=== PATIENT | male | born 1970 | race Caucasian/White ===

== ENCOUNTER 2018-05-24 14:57 | Emergency (ER) | payer MEDICAID, OTHER ==
[~2018-05-24] VITALS: Ht 172.7 cm; Wt 68.0 kg
--- NOTE | 2018-05-24 15:22 | ED Cardiac General ---
History of Present Illness General Stated Complaint: FAST HEART RATE Source: patient Exam Limitations: no limitations History of Present Illness Date Seen by Provider: May 24, 2018 Time Seen by Provider: 15:04 Initial Comments 47-year-old male presents with history of palpitations beginning at 0200 last night. He states he just come in from fishing when he noticed the palpitations and general malaise. He is feeling better now but states he notes continued increased heart rate. Denies any drug usage last night but states he last smoked methamphetamines about 3 days ago. Denies alcohol use, stimulant use or new medications. He states he has a seizure disorders been on medication chronically without change. He is unaware of what that medication is. He takes medication for reflux as well. He admits to daily marijuana use. Allergies and Home Medications Allergies Coded Allergies: No Known Drug Allergies (Unverified , 05/24/18) Patient Home Medication List Home Medication List Reviewed: Yes Review of Systems Review of Systems Constitutional: see HPI EENTM: No Symptoms Reported Respiratory: Cough, Other (sputum production) Cardiovascular: See HPI; Denies Chest Pain Gastrointestinal: No Symptoms Reported Genitourinary: No Symptoms Reported Musculoskeletal: no symptoms reported Skin: no symptoms reported Psychiatric/Neurological: No Symptoms Reported Endocrine: No Symptoms Reported Hematologic/Lymphatic: No Symptoms Reported Past Kdzfhwb-Niamyd-Uxpvvx Hx Past Med/Social Hx: Reviewed Nursing Past Med/Soc Hx Patient Social History Recent Foreign Travel: No (N) Contact w/Someone Who Travel: No (N) Physical Exam Vital Signs Vital Signs - First Documented 05/24/18 15:23 Temp 96.7 Pulse 113 Resp 18 B/P (MAP) 144/84 (104) Pulse Ox 97 O2 Delivery Room Air Capillary Refill : Height, Weight, BMI Height: '" Weight: lbs. oz. kg; BMI Method: General Appearance: No Apparent Distress, WD/WN HEENT: PERRL/EOMI, TMs Normal, Normal ENT Inspection, Pharynx Normal Neck: Full Range of Motion, Normal Inspection, Non Tender Respiratory: Chest Non Tender, Normal Breath Sounds, No Accessory Muscle Use, No Respiratory Distress, Rhonci Cardiovascular: Regular Rate, Rhythm, No Edema, No Gallop, No JVD, No Murmur, Normal Peripheral Pulses, Tachycardia Gastrointestinal: Normal Bowel Sounds, No Organomegaly, No Pulsatile Mass, Non Tender Extremity: Normal Capillary Refill, Normal Inspection, Normal Range of Motion, Non Tender, No Calf Tenderness, No Pedal Edema Neurologic/Psychiatric: Alert, Oriented x3, No Motor/Sensory Deficits, Normal 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, 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 as Tested Skin: Normal Color, Warm/Dry Lymphatic: No Adenopathy Progress/Results/Core Measures Results/Orders Lab Results Laboratory Tests Test 05/24/18 15:15 05/24/18 15:30 Range/Units White Blood Count 7.8 4.3-11.0 10^3/uL Red Blood Count 4.41 4.35-5.85 10^6/uL Hemoglobin 13.3 13.3-17.7 G/DL Hematocrit 42 40-54 % Mean Corpuscular Volume 94 80-99 FL Mean Corpuscular Hemoglobin 30 25-34 PG Mean Corpuscular Hemoglobin Concent 32 32-36 G/DL Red Cell Distribution Width 13.3 10.0-14.5 % Platelet Count 338 130-400 10^3/uL Mean Platelet Volume 9.1 7.4-10.4 FL Neutrophils (%) (Auto) 54 42-75 % Lymphocytes (%) (Auto) 30 12-44 % Monocytes (%) (Auto) 10 0-12 % Eosinophils (%) (Auto) 4 0-10 % Basophils (%) (Auto) 1 0-10 % Neutrophils # (Auto) 4.2 1.8-7.8 X 10^3 Lymphocytes # (Auto) 2.4 1.0-4.0 X 10^3 Monocytes # (Auto) 0.8 0.0-1.0 X 10^3 Eosinophils # (Auto) 0.3 0.0-0.3 10^3/uL Basophils # (Auto) 0.1 0.0-0.1 10^3/uL Prothrombin Time 12.7 12.2-14.7 SEC INR Comment 1.0 0.8-1.4 Activated Partial Thromboplast Time 27 24-35 SEC Sodium Level 142 135-145 MMOL/L Potassium Level 3.7 3.6-5.0 MMOL/L Chloride Level 104 98-107 MMOL/L Carbon Dioxide Level 16 L 21-32 MMOL/L Anion Gap 22 H 5-14 MMOL/L Blood Urea Nitrogen 18 7-18 MG/DL Creatinine 0.98 0.60-1.30 MG/DL Estimat Glomerular Filtration Rate > 60 BUN/Creatinine Ratio 18 Glucose Level 148 H 70-105 MG/DL Calcium Level 8.9 8.5-10.1 MG/DL Corrected Calcium 8.5-10.1 MG/DL Magnesium Level 1.9 1.8-2.4 MG/DL Total Bilirubin 0.2 0.1-1.0 MG/DL Aspartate Amino Transf (AST/SGOT) 20 5-34 U/L Alanine Aminotransferase (ALT/SGPT) 18 0-55 U/L Alkaline Phosphatase 76 40-136 U/L Troponin T 8 <=15 NG/L Total Protein 7.2 6.4-8.2 GM/DL Albumin 4.6 H 3.2-4.5 GM/DL Lipase 28 8-78 U/L Urine Color YELLOW Urine Clarity CLEAR Urine pH 5.5 5-9 Urine Specific [place] >=1.030 1.016-1.022 Urine Protein NEGATIVE NEGATIVE Urine Glucose (UA) NEGATIVE NEGATIVE Urine Ketones NEGATIVE NEGATIVE Urine Nitrite NEGATIVE NEGATIVE Urine Bilirubin NEGATIVE NEGATIVE Urine Urobilinogen 0.2 NORMAL MG/DL Urine Leukocyte Esterase NEGATIVE NEGATIVE Urine RBC (Auto) NEGATIVE NEGATIVE Urine RBC RARE /HPF Urine WBC RARE /HPF Urine Squamous Epithelial Cells RARE /HPF Urine Crystals NONE /LPF Urine Bacteria TRACE /HPF Urine Casts NONE /LPF Urine Mucus NEGATIVE /LPF Urine Culture Indicated NO Urine Opiates Screen NEGATIVE NEGATIVE Urine Oxycodone Screen NEGATIVE NEGATIVE Urine Methadone Screen NEGATIVE NEGATIVE Urine Propoxyphene Screen NEGATIVE NEGATIVE Urine Barbiturates Screen POSITIVE H NEGATIVE Ur Tricyclic Antidepressants Screen NEGATIVE NEGATIVE Urine Phencyclidine Screen NEGATIVE NEGATIVE Urine Amphetamines Screen POSITIVE H NEGATIVE Urine Methamphetamines Screen POSITIVE H NEGATIVE Urine Benzodiazepines Screen NEGATIVE NEGATIVE Urine Cocaine Screen NEGATIVE NEGATIVE Urine Cannabinoids Screen POSITIVE H NEGATIVE My Orders Orders - GERA HDZ MD Ekg Tracing (05/24/18 15:11) Saline Lock/Iv-Start (05/24/18 15:11) Monitor-Rhythm Ecg Trace Only (05/24/18 15:11) Cbc With Automated Diff (05/24/18 15:11) Magnesium (05/24/18 15:11) Chest 1 View Ap/Pa Only (05/24/18 15:11) Comprehensive Metabolic Panel (05/24/18 15:11) Protime With Inr (05/24/18 15:11) Partial Thromboplastin Time (05/24/18 15:11) O2 (05/24/18 15:11) Lipid Panel (05/25/18 06:00) Saline Lock/Iv-Start (05/24/18 15:11) Lipase (05/24/18 15:11) Drug Screen Stat (Urine) (05/24/18 15:16) Ua Culture If Indicated (05/24/18 15:16) Dilantin (Phenytoin) (05/24/18 15:22) Troponin T (05/24/18 15:11) Myoglobin Serum (05/24/18 15:15) Vital Signs/I&O 05/24/18 15:23 Temp 96.7 Pulse 113 Resp 18 B/P (MAP) 144/84 (104) Pulse Ox 97 O2 Delivery Room Air Progress Progress Note : Time: 16:20 Progress Note I had an extended discussion with patient concerning the lab testing. I explained that, while there is no evidence of cardiac or other abnormality, that it does not mean that is not present. I stressed the importance of follow- up with his primary care physician for possible further cardiac testing at their discretion. He voiced understanding, acceptance in agreement with this plan. We discuss his use of illicit drugs and how this may be contributing to his current symptoms. I discouraged their future use. Initial ECG Impression Date: May 24, 2018 Initial ECG Impression Time: 15:17 Initial ECG Rhythm: S.Tach Initial ECG Intervals: Normal Initial ECG Impression: Normal Initial ECG Comparisson: No Previous ECG Available Diagnostic Imaging Diagonstic Imaging: Xray Plain Films/CT/US/NM/MRI: chest Comments NAME: REBECCA COPPOLA [facility] REC#: [id number] PT STATUS: REG ER : 1970 PHYSICIAN: GERA HDZ MD ADMIT DATE: 05/24/18/ER FS Draft Date of Exam:05/24/18 CHEST 1 VIEW AP/PA ONLY EXAM: CHEST 1 VIEW AP/PA ONLY. INDICATION: Tachycardia. COMPARISON: None. FINDINGS: Normal heart size and central pulmonary vascularity. No focal pulmonary opacity, pleural effusion, or pneumothorax. No acute osseous findings. IMPRESSION: No acute cardiopulmonary findings. Dictated on workstation # [id number] Dict: 05/24/18 1539 Trans: 05/24/18 1541 [id number] Interpreted by: OC PATTERSON MD Electronically signed by: Departure Impression Primary Impression: Palpitation Additional Impression: Illicit drug use Disposition: HOME, SELF-CARE Condition: Improved Departure-Patient Inst. Decision time for Depature: 16:21 Referrals: MARIS LOYA MD (PCP/Family) Primary Care Physician 2-3 days, sooner as needed Patient Instructions: Chest Pain (DC), Palpitations (DC) Add. Discharge Instructions: See your PCP to follow up this evaluation and to obtain further testing at their discretion. GERA HZD MD May 24, 2018 15:22
[2018-05-24 15:32] LABS: BASOPHILS # (AUTO) 0.1 10^3/uL (0.0-0.1); BASOPHILS % (AUTO) 1 % (0-10); EOSINOPHILS # (AUTO) 0.3 10^3/uL (0.0-0.3); EOSINOPHILS % (AUTO) 4 % (0-10); HEMATOCRIT 42 % (40-54); HEMOGLOBIN 13.3 G/DL (13.3-17.7); LYMPHOCYTES # (AUTO) 2.4 X 10^3 (1.0-4.0); LYMPHOCYTES % (AUTO) 30 % (12-44); MEAN CORPUSCULAR HEMOGLOBIN 30 PG (25-34); MEAN CORPUSCULAR HGB CONC 32 G/DL (32-36); MEAN CORPUSCULAR VOLUME 94 FL (80-99); MEAN PLATELET VOLUME 9.1 FL (7.4-10.4); MONOCYTES # (AUTO) 0.8 X 10^3 (0.0-1.0); MONOCYTES % (AUTO) 10 % (0-12); NEUTROPHILS # (AUTO) 4.2 X 10^3 (1.8-7.8); NEUTROPHILS % (AUTO) 54 % (42-75); PLATELET COUNT 338 10^3/uL (130-400); RED CELL DISTRIBUTION WIDTH 13.3 % (10.0-14.5); WHITE BLOOD COUNT 7.8 10^3/uL (4.3-11.0)
--- NOTE | 2018-05-24 15:40 | NUR ---
Pt stated he felt like he was dying last night. He was fishing when heart began to race. Pt stated that he is currently not in any pain.
--- NOTE | 2018-05-24 15:41 | Diagnostic Imaging Report ---
EXAM: CHEST 1 VIEW AP/PA ONLY. INDICATION: Tachycardia. COMPARISON: None. FINDINGS: Normal heart size and central pulmonary vascularity. No focal pulmonary opacity, pleural effusion, or pneumothorax. No acute osseous findings. IMPRESSION: No acute cardiopulmonary findings. Dictated by: Dictated on workstation # [id number]
[2018-05-24 15:52] LABS: BACTERIA,URINE TRACE /HPF; BILIRUBIN,URINE NEGATIVE (NEGATIVE); CLARITY,URINE CLEAR; COLOR,URINE YELLOW; GLUCOSE, URINE (UA) NEGATIVE (NEGATIVE); KETONES,URINE NEGATIVE (NEGATIVE); LEUKOCYTE ESTERASE ,URINE NEGATIVE (NEGATIVE); NITRITE,URINE NEGATIVE (NEGATIVE); PH,URINE 5.5 (5-9); PROTEIN,URINE NEGATIVE (NEGATIVE); RBC,URINE RARE /HPF; SQUAMOUS EPITHELIAL CELL,UR RARE /HPF; UROBILINOGEN,URINE 0.2 MG/DL (NORMAL); WBC,URINE RARE /HPF
[2018-05-24 15:57] LABS: AMPHETAMINE SCREEN, URINE POSITIVE (NEGATIVE); BARBITURATE SCREEN URINE POSITIVE (NEGATIVE); BENZODIAZEPINES SCREEN URINE NEGATIVE (NEGATIVE); CANNABINOID SCREEN, URINE POSITIVE (NEGATIVE); COCAINE SCREEN URINE NEGATIVE (NEGATIVE); METHADONE STAT NEGATIVE (NEGATIVE); METHAMPHETAMINE SCREEN URINE S POSITIVE (NEGATIVE); OPIATE SCREEN URINE NEGATIVE (NEGATIVE); OXYCODONE STAT NEGATIVE (NEGATIVE); PROPOXYPHENE STAT NEGATIVE (NEGATIVE); TRICYCLIC ANTIDEPRESSANTS SCRE NEGATIVE (NEGATIVE)
[2018-05-24 16:00] LABS: ALANINE AMINOTRANSFERASE 18 U/L (0-55); ALBUMIN 4.6 GM/DL (3.2-4.5); ALKALINE PHOSPHATASE 76 U/L (40-136); BILIRUBIN,TOTAL 0.2 MG/DL (0.1-1.0); BUN/CREATININE RATIO 18; CALCIUM 8.9 MG/DL (8.5-10.1); CARBON DIOXIDE 16 MMOL/L (21-32); CHLORIDE 104 MMOL/L (98-107); CREATININE SERUM 0.98 MG/DL (0.60-1.30); GFR ESTIMATED > 60; GLUCOSE 148 MG/DL (70-105); LIPASE 28 U/L (8-78); MAGNESIUM 1.9 MG/DL (1.8-2.4); POTASSIUM 3.7 MMOL/L (3.6-5.0); SODIUM 142 MMOL/L (135-145); TOTAL PROTEIN 7.2 GM/DL (6.4-8.2)
[2018-05-24 16:01] LABS: PROTHROMBIN TIME PATIENT 12.7 SEC (12.2-14.7)
[2018-05-24 16:31] VITALS: BP 114/71
== END 2018-05-24 16:31 | disposition home or self-care (01) ==
LOC: ER FS 14:59
DX: R00.2 Palpitations (principal); F12.10 Cannabis abuse, uncomplicated
CPT/HCPCS: 36415; 71045; 80053; 80185; 80306; 81000; 83690; 83735; 83874; 84484; 85025; 85610; 85730; 93041

== ENCOUNTER → 2018-06-14 | Emergency (ER) | payer MEDICAID ==
[~2018-06-14] VITALS: Ht 175.3 cm; Wt 70.3 kg
[~2018-06-14] MED LIST: LIDOCAINE 1% INJ 20 ML 20 ML VIAL INJ ONE; TETANUS,DIPTH,PERTUSS P/F (BOOSTRIX) 0.5 ML VIAL IM ONE; cefTRIAXone FOR IV USE 2,000 MG in WATER (STERILE) FOR INJECTION 20 ML IV ONE; fentaNYL INJECTION 100 MCG/2 ML AMP IVP ONE
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
--- NOTE | 2018-06-14 13:23 | Diagnostic Imaging Report ---
Left tibia-fibula at 1254 hours. INDICATION: Puncture wound from dog bite. AP and lateral views were obtained. There are no prior studies available for comparison. FINDINGS: There is no fracture, dislocation or acute bony abnormality evident. There is deformity of the proximal tibia due to prior trauma. There is also intramedullary nadira extending the length of the tibia. The orthopedic hardware appears to be in good position. However, it should be noted that the orthopedic fixation screw in the proximal tibia is broken. There is also mild deformity of the fibular neck from prior trauma. The soft tissues are unremarkable. There is no radiopaque foreign body identified. IMPRESSION: 1. There is no evidence for an acute bony abnormality or for radiopaque foreign body. 2. The orthopedic hardware within the tibia appears to be in good position although the orthopedic fixation screw is broken. Dictated by: Dictated on workstation # [id number]
[2018-06-14 14:11] VITALS: BP 114/72
== END | disposition home or self-care (01) ==
LOC: EDUNIT# 11:36 → ER FS 11:44
DX: S81.031A Puncture wound without foreign body, right knee, initial encounter (principal); S81.832A Puncture wound without foreign body, left lower leg, initial encounter; G40.909 Epilepsy, unspecified, not intractable, without status epilepticus; F17.210 Nicotine dependence, cigarettes, uncomplicated; Z23 Encounter for immunization; Z88.6 Allergy status to analgesic agent; W54.0XXA Bitten by dog, initial encounter
CPT/HCPCS: 12032; 73590; 90715

== ENCOUNTER 2018-08-02 22:07 | Emergency (ER) | payer MEDICAID, OTHER ==
[~2018-08-02] VITALS: Ht 172.7 cm; Wt 63.5 kg
--- NOTE | 2018-08-02 22:29 | ED Chest Pain ---
General Chief Complaint: Chest Wall Stated Complaint: CHEST PAIN; SEIZURE Source: patient, police Exam Limitations: no limitations History of Present Illness Date Seen by Provider: August 02, 2018 Time Seen by Provider: 22:11 Initial Comments The patient presents to ER from [facility] with his arpita and chief complaint that today he woke up feeling some pain in the center of his chest had some chills but no fever cough. He has some malaise and general fatigue. Is also noting that today he's been having some tingling in his third and fourth fingertips especially on his right hand but also in his left hand. He has no history of coronary disease, hypertension, diabetes or hyperlipidemia and does not follow with a doctor routinely. He does smoke about a pack cigarettes per day has a history of smoked methamphetamine use and denies history of stroke. No significant premature family coronary history either. He is not having any nausea or sweats. He denies a history of lung disease, COPD, asthma etc. Not having any swelling in his hands or feet. Arpita says he does not wear handcuffs at all while he is in halfway. His chest pain is worse when he takes a deep breath in. He was given Tylenol and Motrin for his pain alternatively which he said did not help much. He then was apparently holding his breath and had some witnessed seizure-like activity without noted postictal state per arpita. She denies any recent fighting or car wrecks. Allergies and Home Medications Allergies Coded Allergies: aspirin (Verified Allergy, Unknown, 06/14/18) Patient Home Medication List Home Medication List Reviewed: Yes Review of Systems Review of Systems Constitutional: chills; No fever; malaise EENTM: No Blurred Vision, No Double Vision Respiratory: Denies Cough, Denies Shortness of Air Cardiovascular: See HPI, Chest Pain; Denies Edema, Denies Syncope Gastrointestinal: Denies Abdomen Distended, Denies Abdominal Pain, Denies Nausea Genitourinary: Denies Burning, Denies Discharge, Denies Drainage Musculoskeletal: No back pain, No joint pain Skin: No pruritus, No rash Psychiatric/Neurological: Denies Headache, Denies Numbness, Denies Paresthesia Past Hhfhnay-Lkgchw-Ijjmkb Hx Patient Social History Alcohol Use: Regular Use Alcohol Beverage of Choice: Beer Recreational Drug Use: Yes Drug of Choice: methamphetamines, marijuana Smoking Status: Current Everyday Smoker Type Used: Cigarettes (one pack per day) 2nd Hand Smoke Exposure: No Recent Hopitalizations: No Seasonal Allergies Seasonal Allergies: No Past Medical History Surgeries: Yes (Pins in leg bilaterally ) Respiratory: No Cardiac: No Neurological: Yes Seizure Disorder Genitourinary: No Gastrointestinal: Yes (heartburn) Musculoskeletal: No Endocrine: No HEENT: No Cancer: No Psychosocial: No Integumentary: No Blood Disorders: No Physical Exam Vital Signs Vital Signs - First Documented 08/02/18 22:13 Temp 97.9 Pulse 69 Resp 16 B/P (MAP) 137/84 (101) Pulse Ox 98 O2 Delivery Room Air Capillary Refill : Height, Weight, BMI Height: 5'9.00" Weight: 155lbs. 0oz. 70.332544hy; BMI Method:Stated General Appearance: No Apparent Distress, WD/WN HEENT: Pharynx Normal, Moist Mucous Membranes Neck: Full Range of Motion, Normal Inspection Respiratory: No Chest Non Tender; Lungs Clear, Normal Breath Sounds, No Accessory Muscle Use, No Respiratory Distress, Other (direct palpation to the sternum re-creates his chest wall pain.) Cardiovascular: Regular Rate, Rhythm, No Edema, Normal Peripheral Pulses Gastrointestinal: Normal Bowel Sounds, Non Tender, Soft Extremity: Normal Capillary Refill, Normal Inspection, No Pedal Edema Neurologic/Psychiatric: Alert, Oriented x3, Normal Mood/Affect, Sensory Deficit (bilateral upper extremities right worse than left third fourth fifth digits.), Other (positive towels tap over the ulnar nerve at the level of the elbow and tenderness in the neck and shoulder.) Skin: Normal Color, Warm/Dry Progress/Results/Core Measures Results/Orders Lab Results Laboratory Tests Test 08/02/18 22:34 08/02/18 22:50 Range/Units White Blood Count 9.2 4.3-11.0 10^3/uL Red Blood Count 4.54 4.35-5.85 10^6/uL Hemoglobin 13.7 13.3-17.7 G/DL Hematocrit 43 40-54 % Mean Corpuscular Volume 94 80-99 FL Mean Corpuscular Hemoglobin 30 25-34 PG Mean Corpuscular Hemoglobin Concent 32 32-36 G/DL Red Cell Distribution Width 13.2 10.0-14.5 % Platelet Count 306 130-400 10^3/uL Mean Platelet Volume 9.4 7.4-10.4 FL Neutrophils (%) (Auto) 49 42-75 % Lymphocytes (%) (Auto) 33 12-44 % Monocytes (%) (Auto) 11 0-12 % Eosinophils (%) (Auto) 6 0-10 % Basophils (%) (Auto) 1 0-10 % Neutrophils # (Auto) 4.5 1.8-7.8 X 10^3 Lymphocytes # (Auto) 3.1 1.0-4.0 X 10^3 Monocytes # (Auto) 1.0 0.0-1.0 X 10^3 Eosinophils # (Auto) 0.6 H 0.0-0.3 10^3/uL Basophils # (Auto) 0.1 0.0-0.1 10^3/uL Sodium Level 143 135-145 MMOL/L Potassium Level 4.2 3.6-5.0 MMOL/L Chloride Level 102 98-107 MMOL/L Carbon Dioxide Level 26 21-32 MMOL/L Anion Gap 15 H 5-14 MMOL/L Blood Urea Nitrogen 18 7-18 MG/DL Creatinine 0.87 0.60-1.30 MG/DL Estimat Glomerular Filtration Rate > 60 BUN/Creatinine Ratio 21 Glucose Level 114 H 70-105 MG/DL Calcium Level 9.3 8.5-10.1 MG/DL Corrected Calcium 9.2 8.5-10.1 MG/DL Magnesium Level 2.1 1.8-2.4 MG/DL Total Bilirubin 0.2 0.1-1.0 MG/DL Aspartate Amino Transf (AST/SGOT) 17 5-34 U/L Alanine Aminotransferase (ALT/SGPT) 15 0-55 U/L Alkaline Phosphatase 65 40-136 U/L Myoglobin < 21.0 10.0-92.0 NG/ML Troponin T < 6 <=15 NG/L Total Protein 6.5 6.4-8.2 GM/DL Albumin 4.1 3.2-4.5 GM/DL Lipase 24 8-78 U/L Prothrombin Time 13.4 12.2-14.7 SEC INR Comment 1.0 0.8-1.4 Activated Partial Thromboplast Time 27 24-35 SEC My Orders Orders - ALINE THAO Cbc With Automated Diff (08/02/18 22:21) Magnesium (08/02/18 22:21) Ekg Tracing (08/02/18 22:21) Comprehensive Metabolic Panel (08/02/18 22:21) Myoglobin Serum (08/02/18 22:21) Protime With Inr (08/02/18 22:21) Partial Thromboplastin Time (08/02/18 22:21) O2 (08/02/18 22:21) Monitor-Rhythm Ecg Trace Only (08/02/18 22:21) Lipid Panel (08/03/18 06:00) Nitroglycerin 0.4 Mg Btl 25's (Nitrostat (08/02/18 22:30) Ed Iv/Invasive Line Start (08/02/18 22:21) Lipase (08/02/18 22:21) Troponin T (08/02/18 22:21) Chest Pa/Lat (2 View) (08/02/18 22:21) Dilantin (Phenytoin) (08/02/18 22:59) Phenytoin Capsule (Dilantin Capsule) (08/02/18 23:00) Lidocaine 2% Viscous 15 Ml (Xylocaine Vi (08/02/18 23:00) Famotidine Tablet (Pepcid Tablet) (08/02/18 22:59) Antacid Suspension (Mylanta Suspension (08/02/18 23:00) Ketorolac Injection (Toradol Injection) (08/02/18 23:45) Medications Given in ED Current Medications Medications Dose Ordered Sig/Edmund Route Start Time Stop Time Status Last Admin Dose Admin Al Hydrox/Mg Hydrox/Simethicone 30 ml ONCE ONCE PO 08/02/18 23:00 08/02/18 23:01 DC 08/02/18 23:14 30 ML Lidocaine HCl 15 ml ONCE ONCE PO 08/02/18 23:00 08/02/18 23:01 DC 08/02/18 23:14 15 ML Nitroglycerin 0.4 mg UD PRN SL 08/02/18 22:30 08/02/18 21:45 0.4 MG Phenytoin Sodium 200 mg ONCE ONCE PO 08/02/18 23:00 08/02/18 23:01 DC 08/02/18 23:14 200 MG Vital Signs/I&O 08/02/18 22:13 Temp 97.9 Pulse 69 Resp 16 B/P (MAP) 137/84 (101) Pulse Ox 98 O2 Delivery Room Air Progress Progress Note #1: Time: 22:31 Progress Note Patient's chest wall pain is reproducible to direct palpation or deep inspiration. Less worried about coronary more about possible pneumonia or costochondritis. We will try a dose of nitroglycerin. He is a very poor historian with a very flat affect. He was picked up 4 days ago and social is possible he could be withdrawing from his methamphetamine or alcohol one but he does not appear to be expressing any DTs at this time. We did make Ativan when necessary available at the halfway if necessary. A single troponin T being negative would rule out a coronary event that she's been having his chest pain all day. EKG is unremarkable. We'll get a 2 view chest x-ray instead of a 1 view. Perhaps his seizure-like activity resulted in him wrenching something in his neck and that's why he is having reproducible tenderness all up and down the right lateral neck, shoulder and elbow that re-creates his tingling sensation in his hands. Progress Note #2: Time: 22:56 Progress Note The patient states that the nitroglycerin did nothing for his chest pain. We will try GI cocktail see if there is anything gastric related to his chest wall pain. If that doesn't help and his troponin T his back normal then we can try Toradol and NSAIDs outpatient. He does remember now that he saw Dr. Thorpe for his seizure disorder and was on Dilantin although he remembers taking only one tablet twice a day and not the exact dose. We will restart him on some Dilantin and he can follow up outpatient later either through the halfway nurse practitioner or when he gets out. He thinks the last time he would've taken his Dilantin was on the when he was incarcerated. We'll obtain a Dilantin level that his primary care doctor can follow up outpatient later. 200 mg times one by mouth. Progress Note #3: Time: 23:37 Progress Note GI cocktail made marginal improvement in his symptoms. He still having the pain so since we suspect he has a compressive neuropathy causing the tingling in his fingertips as well as chest wall pain or any give him a dose of Toradol put him on Naprosyn for the next 2 weeks. We'll also put him on 100 mg twice a day Dilantin. Initial ECG Impression Date: August 02, 2018 Initial ECG Impression Time: 22:13 Initial ECG Rate: 75 Initial ECG Rhythm: Normal Sinus Initial ECG Intervals: Normal Initial ECG Impression: Normal Initial ECG Comparisson: No Previous ECG Available Comment No ST elevation or depression. Diagnostic Imaging Diagonstic Imaging: Xray Plain Films/CT/US/NM/MRI: chest (two-view) Comments No acute cardiopulmonary process noted on a 2 view chest x-ray. Reviewed: Reviewed by Me Departure Impression Primary Impression: Chest wall pain Additional Impressions: Compression neuropathy Seizure disorder Dilantin level too low Disposition: HOME, SELF-CARE Condition: Stable Departure-Patient Inst. Decision time for Depature: 23:38 Referrals: MARIS THORPE MD (PCP/Family) Primary Care Physician Patient Instructions: Chest Pain That Is Not Caused by the Heart (DC), Costochondritis (DC) Add. Discharge Instructions: Start taking the Dilantin 100 mg capsule twice a day. Follow-up with primary care or the nurse practitioner at the halfway. Start taking the Naprosyn 500 mg capsule twice a day with food for the next 2 weeks until the pain in your neck and shoulders and tingling in your fingertips has improved. If at that time it has not improved then you should follow-up with the nurse practitioner or primary care doctor for further evaluation and management. You may also use Tylenol 1000 mg as necessary every 8 hours for neck and shoulder pain. Icy hot, Biofreeze, ice alternated with heating pads to the neck and shoulders can also be helpful. All discharge instructions reviewed with patient and/or family. Voiced understanding. Scripts Phenytoin Sodium Extended (Dilantin) 100 Mg Capsule 100 MG PO BID for 30 Days, #60 CAP 0 Refills Prov: ALINE THAO 08/02/18 Naproxen (Naprosyn) 500 Mg Tablet 500 MG PO BID for 14 Days, #30 TAB 0 Refills Prov: ALINE THAO 08/02/18 ALINE THAO August 02, 2018 22:29
[2018-08-02] MEDS ORDERED: NITROGLYCERIN 0.4 MG SL TABS BTL 25'S SL PRN (22:30)
[2018-08-02 22:55] LABS: HEMATOCRIT 43 % (40-54); HEMOGLOBIN 13.7 G/DL (13.3-17.7); MEAN CORPUSCULAR HEMOGLOBIN 30 PG (25-34); MEAN CORPUSCULAR HGB CONC 32 G/DL (32-36); MEAN CORPUSCULAR VOLUME 94 FL (80-99); MEAN PLATELET VOLUME 9.4 FL (7.4-10.4); PLATELET COUNT 306 10^3/uL (130-400); RED CELL DISTRIBUTION WIDTH 13.2 % (10.0-14.5); WHITE BLOOD COUNT 9.2 10^3/uL (4.3-11.0)
[2018-08-02 22:57] LABS: BASOPHILS # (AUTO) 0.1 10^3/uL (0.0-0.1); BASOPHILS % (AUTO) 1 % (0-10); EOSINOPHILS # (AUTO) 0.6 10^3/uL (0.0-0.3); EOSINOPHILS % (AUTO) 6 % (0-10); LYMPHOCYTES # (AUTO) 3.1 X 10^3 (1.0-4.0); LYMPHOCYTES % (AUTO) 33 % (12-44); MONOCYTES % (AUTO) 11 % (0-12); NEUTROPHILS # (AUTO) 4.5 X 10^3 (1.8-7.8); NEUTROPHILS % (AUTO) 49 % (42-75)
[2018-08-02] MEDS ORDERED: FAMOTIDINE 20 MG (PEPCID) TABLET PO STA (22:59)
[2018-08-02] MEDS ORDERED: ANTACID SUSP 30 ML UDC (MYLANTA) PO ONE (23:00)
[2018-08-02] MEDS ORDERED: PHENYTOIN 100 MG (DILANTIN) CAP PO ONE (23:00)
[2018-08-02] MEDS ORDERED: LIDOCAINE 2% VISCOUS 15 ML UDC PO ONE (23:00)
[2018-08-02 23:11] LABS: BUN/CREATININE RATIO 21; CARBON DIOXIDE 26 MMOL/L (21-32); CHLORIDE 102 MMOL/L (98-107); CREATININE SERUM 0.87 MG/DL (0.60-1.30); GFR ESTIMATED > 60; POTASSIUM 4.2 MMOL/L (3.6-5.0); SODIUM 143 MMOL/L (135-145)
[2018-08-02 23:12] LABS: ALANINE AMINOTRANSFERASE 15 U/L (0-55); ALBUMIN 4.1 GM/DL (3.2-4.5); ALKALINE PHOSPHATASE 65 U/L (40-136); BILIRUBIN,TOTAL 0.2 MG/DL (0.1-1.0); CALCIUM 9.3 MG/DL (8.5-10.1); GLUCOSE 114 MG/DL (70-105); MAGNESIUM 2.1 MG/DL (1.8-2.4); TOTAL PROTEIN 6.5 GM/DL (6.4-8.2)
[2018-08-02 23:17] LABS: PROTHROMBIN TIME PATIENT 13.4 SEC (12.2-14.7)
[2018-08-02 23:35] LABS: LIPASE 24 U/L (8-78)
[2018-08-02] MEDS ORDERED: KETOROLAC 30 MG/ML VIAL ONE (23:35)
[2018-08-02] MEDS ORDERED: NAPR-1071 PO (23:40)
[2018-08-02] MEDS ORDERED: PHEN100C4 PO (23:40)
[2018-08-02] MEDS ORDERED: KETOROLAC 30 MG/ML VIAL IVP ONE (23:45)
[2018-08-02 23:48] VITALS: BP 124/76
--- NOTE | 2018-08-03 06:07 | Diagnostic Imaging Report ---
Chest 2 views at 10:22 PM. INDICATION: Chest pain. FINDINGS: The heart size is within normal limits and stable when compared to 05/24/2018. The lungs are clear. There is no evidence for failure, pneumonia or for pleural effusion to suggest an acute abnormality. The small parenchymal density overlying the left upper lung seen previously is again evident and no different. The mediastinum is not widened. The osseous structures are intact. IMPRESSION: There is no evidence for active disease. Dictated by: Dictated on workstation # [id number]
== END 2018-08-02 23:53 | disposition home or self-care (01) ==
LOC: EDUNIT# 22:07 → ER FS 22:09
DX: R07.89 Other chest pain (principal); G40.909 Epilepsy, unspecified, not intractable, without status epilepticus; G58.9 Mononeuropathy, unspecified; R89.2 Abnormal level of other drugs, medicaments and biological substances in specimens from other organs, systems and tissues; F15.10 Other stimulant abuse, uncomplicated; F12.10 Cannabis abuse, uncomplicated; F17.210 Nicotine dependence, cigarettes, uncomplicated; Z79.82 Long term (current) use of aspirin
CPT/HCPCS: 36415; 71046; 80053; 80185; 83690; 83735; 83874; 84484; 85025; 85610; 85730; 93005; 93041; 96374

== ENCOUNTER 2019-12-03 03:09 | Emergency (ER) | payer OTHER ==
[~2019-12-03] VITALS: Ht 172.7 cm; Wt 65.4 kg
[~2019-12-03 03:09] MED LIST changes: -LIDOCAINE 1% INJ 20 ML 20 ML VIAL INJ ONE; +NAPR-1071 PO; +PHEN100C4 PO; -TETANUS,DIPTH,PERTUSS P/F (BOOSTRIX) 0.5 ML VIAL IM ONE; -cefTRIAXone FOR IV USE 2,000 MG in WATER (STERILE) FOR INJECTION 20 ML IV ONE; -fentaNYL INJECTION 100 MCG/2 ML AMP IVP ONE
[2019-12-03 03:14] VITALS: BP 139/79
--- NOTE | 2019-12-03 03:28 | ED General ---
General Chief Complaint: General Problems/Pain Stated Complaint: MEDICAL CLEARANCE Nursing Triage Note: Patient is brought in via [facility] for medical clearance for confinment. Patient told officers he took 2 ASA and states he is allergic to ASA. Patient has been drinking alcohol this evening. Nursing Sepsis Screen: No Definite Risk Source of Information: Police History of Present Illness Date Seen by Provider: Dec 03, 2019 Time Seen by Provider: 03:15 Initial Comments Patient is of 48-year-old male with history of alcohol and methamphetamine abuse who presents for medical evaluation prior to incarceration. Patiently initially told law enforcement officers that he took 2 baby aspirin. The patient does report an allergy to aspirin and apparently was attempting to evade incarceration by telling officers about alleged overdose. However, upon arrival to the emergency department the patient acknowledges that he didn't take aspirin and has no aspirin on his person due to allergies. On exam, the patient smells of EtOH intoxicants has poor hygiene. He does not have any rash, airway swelling, shortness breath or wheezing. No other medical complaints at this time. She'll history obtained by law enforcement officers. Timing/Duration: 1 Hour Severity: Mild Allergies and Home Medications Allergies Coded Allergies: aspirin (Verified Allergy, Unknown, 06/14/18) Home Medications Naproxen 500 Mg Tablet, 500 MG PO BID Prescribed by: ALINE THAO on 08/02/18 2340 Phenytoin Sodium Extended 100 Mg Capsule, 100 MG PO BID Prescribed by: ALINE THAO on 08/02/18 2340 Patient Home Medication List Home Medication List Reviewed: Yes Review of Systems Review of Systems Constitutional: see HPI EENTM: see HPI Respiratory: see HPI Cardiovascular: see HPI Gastrointestinal: see HPI Genitourinary: see HPI Musculoskeletal: see HPI Skin: see HPI Psychiatric/Neurological: See HPI Hematologic/Lymphatic: See HPI Immunological/Allergic: see HPI All Other Systems Reviewed Negative Unless Noted: Yes Past Pvzneob-Zghcte-Nfojno Hx Past Med/Social Hx: Reviewed Nursing Past Med/Soc Hx Patient Social History Alcohol Beverage of Choice: Beer Drug of Choice: methamphetamines, marijuana Type Used: Cigarettes 2nd Hand Smoke Exposure: No Recent Foreign Travel: No Contact w/Someone Who Travel: No Recent Infectious Disease Expo: No Recent Hopitalizations: No Seasonal Allergies Seasonal Allergies: No Past Medical History Surgeries: Yes (Pins in leg bilaterally ) Respiratory: No Cardiac: No Neurological: Yes Seizure Disorder Genitourinary: No Gastrointestinal: Yes (heartburn) Musculoskeletal: No Endocrine: No HEENT: No Cancer: No Psychosocial: No Integumentary: No Blood Disorders: No Physical Exam Vital Signs Vital Signs - First Documented 12/03/19 03:14 Temp 36.9 Pulse 114 Resp 18 B/P (MAP) 139/79 (99) Pulse Ox 99 O2 Delivery Room Air Capillary Refill : Less Than 3 Seconds Height, Weight, BMI Height: 5'8.00" Weight: 140lbs. 0oz. 63.653567nh; 21.00 BMI Method:Estimated General Appearance: No Apparent Distress, Thin, Other (disheveled, smells of EtOH intoxicants.) Eyes: Bilateral Eye Normal Inspection, Bilateral Eye PERRL HEENT: Other (conjunctivae injected) Neck: Normal Inspection, Supple Respiratory: Lungs Clear Cardiovascular: Regular Rate, Rhythm Back: Normal Inspection Extremity: Normal Capillary Refill Neurologic/Psychiatric: Alert, Oriented x3 Skin: Normal Color Focused Exam Sepsis Stage: Ruled Out Progress/Results/Core Measures Suspected Sepsis Recent Fever Within 48 Hours: No Infection Criteria Present: None New/Unexplained Altered Menta: No Sepsis Screen: No Definite Risk SIRS Temperature: Pulse: 114 Respiratory Rate: 18 Blood Pressure 139 /79 Mean: 99 Results/Orders Vital Signs/I&O 12/03/19 03:14 Temp 36.9 Pulse 114 Resp 18 B/P (MAP) 139/79 (99) Pulse Ox 99 O2 Delivery Room Air Capillary Refill : Less Than 3 Seconds Blood Pressure Mean: 99 Departure Communication (Admissions) Patient is medically stable for discharge from the emergency department. He is discharged to police custody. Impression Primary Impression: Encounter for medical screening examination Disposition: [address]/LAW ENFORCE Condition: Stable Departure-Patient Inst. Decision time for Depature: 03:28 Referrals: MARIS LOYA MD (PCP/Family) Primary Care Physician Add. Discharge Instructions: Follow-up with outpatient drug and alcohol rehabilitation upon release from [facility]. All discharge instructions reviewed with patient and/or family. Voiced unders tanding. CHIOMA COLVIN DO Dec 03, 2019 03:28
== END 2019-12-03 03:30 ==
LOC: EDUNIT# 03:09 → ER FS 03:12
DX: Z00.00 Encounter for general adult medical examination without abnormal findings (principal); G40.909 Epilepsy, unspecified, not intractable, without status epilepticus; Z88.8 Allergy status to other drugs, medicaments and biological substances
CPT/HCPCS: 99283

== ENCOUNTER 2021-03-31 18:08 | Emergency (ER) | payer MEDICAID, OTHER ==
--- NOTE | 2021-03-31 18:24 | ED Back Pain ---
General Chief Complaint: Back Problems Stated Complaint: BACK PAIN Source of Information: Patient Exam Limitations: No Limitations History of Present Illness Date Seen by Provider: Mar 31, 2021 Time Seen by Provider: 18:12 Initial Comments 50-year-old male with past medical history of polysubstance use disorder coming in due to right-sided lower back pain. He said he had a remote fall about a year ago when he landed on a log. He was never seen by anybody. For the past couple days he has noticed the right-sided sharp pain in his lower back worse with movement and better with rest. Denies any dysuria, hematuria, fever, midline back pain, recent trauma, weakness, numbness, bowel or bladder issues, weight loss, history of cancer, or any other concerns. He has not taken any medications for the pain and says he is "broke" and can't afford any. Allergies and Home Medications Allergies Coded Allergies: aspirin (Verified Allergy, Unknown, 06/14/18) Patient Home Medication List Home Medication List Reviewed: Yes Naproxen (Naprosyn) 500 Mg Tablet, 500 MG PO BID Prescribed by: ALINE THAO on 08/02/182339 Phenytoin Sodium Extended (Dilantin) 100 Mg Capsule, 100 MG PO BID Prescribed by: ALINE THAO on 08/02/182339 Review of Systems Constitutional: No chills, No fever EENTM: No blurred vision Respiratory: No cough Cardiovascular: No chest pain Gastrointestinal: No abdominal pain Genitourinary: No discharge, No dysuria Musculoskeletal: back pain Skin: no symptoms reported Psychiatric/Neurological: No Symptoms Reported All Other Systems Reviewed Negative Unless Noted: Yes Past Vyidciz-Egpfuu-Diomco Hx Patient Social History Tobacco Use?: Yes Alcohol Use?: Yes Seasonal Allergies Seasonal Allergies: No Past Medical History Surgeries: Yes (Pins in leg bilaterally ) Orthopedic Respiratory: No Cardiac: No Neurological: Yes Seizure Disorder Genitourinary: No Gastrointestinal: Yes (heartburn) Musculoskeletal: No Endocrine: No HEENT: No Cancer: No Psychosocial: No Integumentary: No Blood Disorders: No Physical Exam Vital Signs Vital Signs - First Documented 03/31/21 18:15 Temp 36.2 Pulse 75 Resp 18 B/P (MAP) 141/87 (105) Pulse Ox 98 O2 Delivery Room Air Capillary Refill : Height, Weight, BMI Height: 5'8.00" Weight: 140lbs. 0oz. 63.430215oc; 21.00 BMI Method:Estimated General Appearance: No Apparent Distress HEENT: PERRL/EOMI, Normal ENT Inspection, Pharynx Normal Neck: Full Range of Motion, Normal Inspection, Non Tender, Supple Cardiovascular: Regular Rate, Rhythm, No Edema, Normal Peripheral Pulses Respiratory: Chest Non Tender, Lungs Clear, Normal Breath Sounds, No Accessory Muscle Use, No Respiratory Distress Gastrointestinal: Normal Bowel Sounds, Non Tender Back: Normal Inspection, No CVA Tenderness, No Vertebral Tenderness, Other (right sided lower back muscular tenderness) Extremity: Normal Capillary Refill, Normal Inspection, Normal Range of Motion, Non Tender, No Calf Tenderness, No Pedal Edema, Other (Antalgic gait) Neurologic/Psychiatric: Alert, No Motor/Sensory Deficits, Normal Mood/Affect Skin: Normal Color, Warm/Dry Lymphatic: No Adenopathy Progress/Results/Core Measures Results/Orders My Orders Orders - HENRIETTA PEREIRA MD Lumbar Spine 2 Or 3 View (03/31/21 18:18) Ibuprofen Tablet (Motrin Tablet) (03/31/21 18:30) Acetaminophen Tablet/Caplet (Tylenol T (03/31/21 18:30) Norepinephrine 8 Mg/250 Ml (Norepinephri (03/31/21 18:56) Medications Given in ED Current Medications Medications Dose Ordered Sig/Edmund Route Start Time Stop Time Status Last Admin Dose Admin Acetaminophen 650 mg ONCE ONCE PO 03/31/21 18:30 03/31/21 18:31 DC 03/31/21 18:25 650 MG Ibuprofen 600 mg ONCE ONCE PO 03/31/21 18:30 03/31/21 18:31 DC 03/31/21 18:25 600 MG Vital Signs/I&O 03/31/21 03/31/21 18:15 18:25 Temp 36.2 36.2 Pulse 75 Resp 18 B/P (MAP) 141/87 (105) Pulse Ox 98 O2 Delivery Room Air Progress Progress Note : Progress Note 50-year-old male with above history coming in due to low back pain. ABCs were intact and vitals were stable on presentation. Physical exam with some muscular tenderness in the right lateral lower back. No midline bony tenderness. He has no red flags for low back pain including a normal neurologic exam at this time. Pain has been constant for days and does not seem consistent with kidney stones. X-ray obtained and no obvious fracture on my interpretation of his lumbar spine . He was given ibuprofen and Tylenol for pain control. I believe he is stable for discharge with outpatient follow-up. He was sent home with strict return precautions Diagnostic Imaging Diagonstic Imaging: Xray (lumbar) Comments [facility] [place], [place] NAME: REBECCA COPPOLA [facility] REC#: [id number] PT STATUS: REG ER : 1970 PHYSICIAN: HENRIETTA PEREIRA MD ADMIT DATE: 03/31/21/ER FS Signed Date of Exam:03/31/21 LUMBAR SPINE 2 OR 3 VIEW INDICATION: Back pain, fall. FINDINGS: Lumbar statures are normal. There are degenerative changes to the discs, endplates and facets at the lower lumbar spine. No fracture or acute abnormality. IMPRESSION: Chronic degenerative changes but no fracture or malalignment. Dictated by: Dictated on workstation # [id number] Dict: 03/31/218 Trans: 03/31/211899 [facility] [id number] Interpreted by: TUCKER NAIDU Electronically signed by: TUCKER NAIDU 03/31/211899 Departure Impression Primary Impression: Low back pain Qualified Codes: M54.50 - Low back pain, unspecified Disposition: HOME, SELF-CARE Condition: Stable Departure-Patient Inst. Decision time for Depature: 19:34 Referrals: MARIS LOYA MD (PCP) Primary Care Physician Patient Instructions: Low Back Pain (DC) Add. Discharge Instructions: Please follow-up with Dr. Loya on the in the next week if your pain is not getting better. If you develop any weakness, numbness, fever, or any other concerns and please immediately come back to the ER or call your doctor. Take ibuprofen 600 mg every 6 hours as well as Tylenol 1000 mg every 6 hours when you are not drinking alcohol. You can buy both of these [id number] for a few dollars at [facility]. You can also try heating pad. Try gentle stretching at home as well. HENRIETTA PEREIRA MD Mar 31, 2021 18:24
[2021-03-31] MEDS ORDERED: IBUPROFEN 600 MG (MOTRIN) TAB PO ONE (18:30)
[2021-03-31] MEDS ORDERED: ACETAMINOPHEN 325 MG TABLET PO ONE (18:30)
--- NOTE | 2021-03-31 18:46 | Diagnostic Imaging Report ---
INDICATION: Back pain, fall. FINDINGS: Lumbar statures are normal. There are degenerative changes to the discs, endplates and facets at the lower lumbar spine. No fracture or acute abnormality. IMPRESSION: Chronic degenerative changes but no fracture or malalignment. Dictated by: Dictated on workstation # [id number]
[2021-03-31] MEDS ORDERED: NOREPINEPHRINE 8 MG/250 ML 0 ML IV ONE (18:56)
[2021-03-31 19:43] VITALS: BP 144/81
== END 2021-03-31 19:43 | disposition home or self-care (01) ==
LOC: EDUNIT# 18:08 → ER FS 18:09
DX: M54.50 Low back pain, unspecified (principal); G40.909 Epilepsy, unspecified, not intractable, without status epilepticus; Z72.0 Tobacco use; Z79.899 Other long term (current) drug therapy
CPT/HCPCS: 72100

== ENCOUNTER 2022-06-09 18:15 | Emergency (ER) | payer MEDICAID, OTHER ==
[~2022-06-09] VITALS: Ht 170.2 cm; Wt 67.2 kg
--- NOTE | 2022-06-09 18:23 | ED Chest Pain ---
General Chief Complaint: Chest Pain Stated Complaint: CHEST PAIN History of Present Illness Date Seen by Provider: Jun 09, 2022 Time Seen by Provider: 18:22 Initial Comments 51-year-old male who is brought here from residential, is here with complaints of chest pain just been going on since yesterday. Patient was taken to residential just yesterday. Patient has been doing methamphetamines and marijuana. Patient is a smoker. Patient states that chest pain is more painful when he presses on the left side of his chest near his sternum. Denies fever and chills, nausea and vomiting, palpitations, diarrhea or abdominal pain, or diaphoresis. Allergies and Home Medications Allergies Coded Allergies: aspirin (Verified Allergy, Unknown, 06/14/18) Patient Home Medication List Home Medication List Reviewed: Yes Naproxen (Naprosyn) 500 Mg Tablet, 500 MG PO BID Prescribed by: ALINE THAO on 08/02/182339 Phenytoin Sodium Extended (Dilantin) 100 Mg Capsule, 100 MG PO BID Prescribed by: ALINE THAO on 08/02/182339 Review of Systems Review of Systems Constitutional: no symptoms reported EENTM: No Symptoms Reported Respiratory: No Symptoms Reported Cardiovascular: Chest Pain Gastrointestinal: No Symptoms Reported Genitourinary: No Symptoms Reported Musculoskeletal: no symptoms reported Skin: no symptoms reported Psychiatric/Neurological: No Symptoms Reported Endocrine: No Symptoms Reported Hematologic/Lymphatic: No Symptoms Reported Past Lecscdz-Efpvjn-Bdktsy Hx Seasonal Allergies Seasonal Allergies: No Past Medical History Surgery/Hospitalization HX: hx substance abuse Surgeries: Yes (Pins in leg bilaterally ) Orthopedic Respiratory: No Cardiac: No Neurological: Yes Seizure Disorder Genitourinary: No Gastrointestinal: Yes (heartburn) Musculoskeletal: No Endocrine: No HEENT: No Cancer: No Psychosocial: No Integumentary: No Blood Disorders: No Physical Exam Vital Signs Vital Signs - First Documented 06/09/22 18:20 Temp 36.4 Pulse 79 Resp 18 B/P (MAP) 123/70 (87) Pulse Ox 98 O2 Delivery Room Air Capillary Refill : Height, Weight, BMI Height: 5'8.00" Weight: 140lbs. 0oz. [id number]; 21.00 BMI Method:Estimated General Appearance: No Apparent Distress HEENT: PERRL/EOMI Neck: Full Range of Motion Respiratory: Lungs Clear, Normal Breath Sounds, Other (Point tenderness which is reproducible on left third, fourth costochondral junctions) Cardiovascular: Regular Rate, Rhythm, No Edema, No Murmur Gastrointestinal: Normal Bowel Sounds, Non Tender, Soft Extremity: Normal Range of Motion Neurologic/Psychiatric: Alert, Oriented x3, Normal Mood/Affect Skin: Normal Color Progress/Results/Core Measures Results/Orders Lab Results Laboratory Tests Test 06/09/22 18:20 06/09/22 18:47 Range/Units White Blood Count 8.7 4.3-11.0 10^3/uL Red Blood Count 4.40 4.30-5.52 10^6/uL Hemoglobin 13.0 L 13.3-17.7 g/dL Hematocrit 40 40-54 % Mean Corpuscular Volume 92 80-99 fL Mean Corpuscular Hemoglobin 30 25-34 pg Mean Corpuscular Hemoglobin Concent 32 32-36 g/dL Red Cell Distribution Width 13.6 10.0-14.5 % Platelet Count 370 130-400 10^3/uL Mean Platelet Volume 8.7 L 9.0-12.2 fL Immature Granulocyte % (Auto) 0 % Neutrophils (%) (Auto) 51 42-75 % Lymphocytes (%) (Auto) 34 12-44 % Monocytes (%) (Auto) 10 0-12 % Eosinophils (%) (Auto) 4 0-10 % Basophils (%) (Auto) 1 0-10 % Neutrophils # (Auto) 4.4 1.8-7.8 10^3/uL Lymphocytes # (Auto) 3.0 1.0-4.0 10^3/uL Monocytes # (Auto) 0.9 0.0-1.0 10^3/uL Eosinophils # (Auto) 0.3 0.0-0.3 10^3/uL Basophils # (Auto) 0.1 0.0-0.1 10^3/uL Immature Granulocyte # (Auto) 0.0 0.0-0.1 10^3/uL Prothrombin Time 12.5 12.2-14.7 SEC INR Comment 0.9 0.8-1.4 Activated Partial Thromboplast Time 24 24-35 SEC D-Dimer 0.14 0.00-0.49 UG/ML Sodium Level 142 135-145 MMOL/L Potassium Level 4.2 3.6-5.0 MMOL/L Chloride Level 104 98-107 MMOL/L Carbon Dioxide Level 29 21-32 MMOL/L Anion Gap 9 5-14 MMOL/L Blood Urea Nitrogen 18 7-18 MG/DL Creatinine 1.03 0.60-1.30 MG/DL Estimat Glomerular Filtration Rate 88 BUN/Creatinine Ratio 17 Glucose Level 76 70-105 MG/DL Calcium Level 9.6 8.5-10.1 MG/DL Corrected Calcium 9.4 8.5-10.1 MG/DL Magnesium Level 2.0 1.6-2.4 MG/DL Total Bilirubin 0.3 0.1-1.0 MG/DL Aspartate Amino Transf (AST/SGOT) 26 5-34 U/L Alanine Aminotransferase (ALT/SGPT) 12 0-55 U/L Alkaline Phosphatase 80 40-136 U/L Troponin I < 0.30 <0.30 NG/ML Total Protein 6.7 6.4-8.2 GM/DL Albumin 4.3 3.2-4.5 GM/DL Urine Color YELLOW Urine Clarity CLEAR Urine pH 6.0 5-9 Urine Specific [place] >=1.030 1.016-1.022 Urine Protein NEGATIVE NEGATIVE Urine Glucose (UA) NEGATIVE NEGATIVE Urine Ketones NEGATIVE NEGATIVE Urine Nitrite NEGATIVE NEGATIVE Urine Bilirubin NEGATIVE NEGATIVE Urine Urobilinogen 1.0 < = 1.0 MG/DL Urine Leukocyte Esterase NEGATIVE NEGATIVE Urine RBC (Auto) NEGATIVE NEGATIVE Urine RBC NONE /HPF Urine WBC 0-2 /HPF Urine Squamous Epithelial Cells 2-5 /HPF Urine Crystals NONE /LPF Urine Bacteria NEGATIVE /HPF Urine Casts NONE /LPF Urine Mucus LARGE H /LPF Urine Culture Indicated NO Urine Opiates Screen NEGATIVE NEGATIVE Urine Oxycodone Screen NEGATIVE NEGATIVE Urine Methadone Screen NEGATIVE NEGATIVE Urine Propoxyphene Screen NEGATIVE NEGATIVE Urine Barbiturates Screen NEGATIVE NEGATIVE Ur Tricyclic Antidepressants Screen NEGATIVE NEGATIVE Urine Phencyclidine Screen NEGATIVE NEGATIVE Urine Amphetamines Screen POSITIVE H NEGATIVE Urine Methamphetamines Screen POSITIVE H NEGATIVE Urine Benzodiazepines Screen NEGATIVE NEGATIVE Urine Cocaine Screen NEGATIVE NEGATIVE Urine Cannabinoids Screen POSITIVE H NEGATIVE My Orders Orders - ELIOT DOSHI MD Cbc With Automated Diff (06/09/22 18:23) Comprehensive Metabolic Panel (06/09/22 18:23) Fibrin Degradation Products (06/09/22 18:23) Drug Screen Stat (Urine) (06/09/22 18:23) Magnesium (4/2/23 18:23) Protime With Inr (06/09/22 18:23) Partial Thromboplastin Time (06/09/22 18:23) Ua Culture If Indicated (06/09/22 18:23) Troponin I Fs (06/09/22 18:23) Chest 1 View Ap/Pa Only (06/09/22 18:24) Continuous Ekg Monitoring (06/09/22 18:24) Ekg Tracing (06/09/22 18:24) Ed Iv/Invasive Line Start (06/09/22 18:24) Vital Signs/I&O 06/09/22 18:20 Temp 36.4 Pulse 79 Resp 18 B/P (MAP) 123/70 (87) Pulse Ox 98 O2 Delivery Room Air Progress Progress Note : Progress Note 1. ACS RULE OUT/ACUTE COSTOCHONDRITIS/methamphetamine and marijuana abuse: - CXR: normal - CBC/ CMP: normal - Troponin: undetected - EKG: non-ischemic -Patient is allergic to aspirin - UA negative for infection - UDS: methamphetamine positive and marijuana positive - Tylenol 650mg STAT in ER -Chest pain likely due to drug abuse and costochondritis. -Advised to stop using methamphetamine and marijuana -Adequate hydration advised --Advised Tylenol 650mg every 4 hours as needed for pain -Follow-up with PCP or residential nurse within the next 7 days -Return to ER if symptoms worsen Diagnostic Imaging Diagonstic Imaging: Xray Plain Films/CT/US/NM/MRI: chest Comments [facility]. [place], [place] NAME[facility] REC#: [id number] PT STATUS: REG ER : 1970 PHYSICIAN: ELIOT DOSHI MD ADMIT DATE: 06/09/22/ER FS Draft Date of Exam:06/09/22 CHEST 1 VIEW AP/PA ONLY EXAMINATION: Chest 1 view. HISTORY: Chest pain. COMPARISON: 05/24/2018. FINDINGS: The lungs are clear without edema or pneumonia. No pleural effusion or pneumothorax. Heart size is normal. IMPRESSION: Clear lungs. Dictated on workstation # [id number] Dict: 06/09/22 1856 Trans: 06/09/22 190 [facility] [id number] Interpreted by: GERA AREVALO MD Electronically signed by: Departure Impression Primary Impression: Ruled out for myocardial infarction Additional Impressions: Methamphetamine abuse Marijuana abuse Acute costochondritis Disposition: 21 [address]/LAW [employer] Condition: Stable Departure-Patient Inst. Referrals: MARIS LOYA MD (PCP/Family) Primary Care Physician Patient Instructions: Chest Pain That Is Not Caused by the Heart (DC), Meth Mouth, Marijuana Use and Addiction (DC), Cannabis Use Disorder, Heart Healthy Diet, Costochondritis Add. Discharge Instructions: -Advised to stop using methamphetamine and marijuana -Adequate hydration advised -Follow-up with PCP or residential nurse within the next 7 days -Advised Tylenol 650mg every 4 hours as needed for pain All discharge instructions reviewed with patient and/or family. Voiced understanding. ELIOT DOSHI MD Jun 09, 2022 18:23
[2022-06-09 18:27] LABS: BASOPHILS # (AUTO) 0.1 10^3/uL (0.0-0.1); BASOPHILS % (AUTO) 1 % (0-10); EOSINOPHILS # (AUTO) 0.3 10^3/uL (0.0-0.3); EOSINOPHILS % (AUTO) 4 % (0-10); HEMATOCRIT 40 % (40-54); LYMPHOCYTES % (AUTO) 34 % (12-44); MEAN CORPUSCULAR HEMOGLOBIN 30 pg (25-34); MEAN CORPUSCULAR HGB CONC 32 g/dL (32-36); MEAN CORPUSCULAR VOLUME 92 fL (80-99); MEAN PLATELET VOLUME 8.7 fL (9.0-12.2); MONOCYTES # (AUTO) 0.9 10^3/uL (0.0-1.0); MONOCYTES % (AUTO) 10 % (0-12); NEUTROPHILS # (AUTO) 4.4 10^3/uL (1.8-7.8); NEUTROPHILS % (AUTO) 51 % (42-75); PLATELET COUNT 370 10^3/uL (130-400); WHITE BLOOD COUNT 8.7 10^3/uL (4.3-11.0)
[2022-06-09 18:46] LABS: INR 0.9 (0.8-1.4); PROTHROMBIN TIME PATIENT 12.5 SEC (12.2-14.7)
[2022-06-09 18:47] LABS: ALANINE AMINOTRANSFERASE 12 U/L (0-55); ALBUMIN 4.3 GM/DL (3.2-4.5); ALKALINE PHOSPHATASE 80 U/L (40-136); BILIRUBIN,TOTAL 0.3 MG/DL (0.1-1.0); BUN/CREATININE RATIO 17; CALCIUM 9.6 MG/DL (8.5-10.1); CARBON DIOXIDE 29 MMOL/L (21-32); CHLORIDE 104 MMOL/L (98-107); CREATININE SERUM 1.03 MG/DL (0.60-1.30); GFR ESTIMATED 88; GLUCOSE 76 MG/DL (70-105); POTASSIUM 4.2 MMOL/L (3.6-5.0); SODIUM 142 MMOL/L (135-145); TOTAL PROTEIN 6.7 GM/DL (6.4-8.2)
[2022-06-09 18:51] LABS: BILIRUBIN,URINE NEGATIVE (NEGATIVE); CLARITY,URINE CLEAR; COLOR,URINE YELLOW; GLUCOSE, URINE (UA) NEGATIVE (NEGATIVE); KETONES,URINE NEGATIVE (NEGATIVE); LEUKOCYTE ESTERASE ,URINE NEGATIVE (NEGATIVE); NITRITE,URINE NEGATIVE (NEGATIVE); PROTEIN,URINE NEGATIVE (NEGATIVE)
[2022-06-09 18:52] LABS: FIBRIN DEGRADATION PRODUCTS 0.14 UG/ML (0.00-0.49)
[2022-06-09 18:56] LABS: BACTERIA,URINE NEGATIVE /HPF; WBC,URINE 0-2 /HPF
[2022-06-09 19:00] LABS: AMPHETAMINE SCREEN, URINE POSITIVE (NEGATIVE); BARBITURATE SCREEN URINE NEGATIVE (NEGATIVE); BENZODIAZEPINES SCREEN URINE NEGATIVE (NEGATIVE); CANNABINOID SCREEN, URINE POSITIVE (NEGATIVE); COCAINE SCREEN URINE NEGATIVE (NEGATIVE); METHADONE STAT NEGATIVE (NEGATIVE); OPIATE SCREEN URINE NEGATIVE (NEGATIVE); OXYCODONE STAT NEGATIVE (NEGATIVE); PROPOXYPHENE STAT NEGATIVE (NEGATIVE); TRICYCLIC ANTIDEPRESSANTS SCRE NEGATIVE (NEGATIVE)
--- NOTE | 2022-06-09 19:04 | Diagnostic Imaging Report ---
EXAMINATION: Chest 1 view. HISTORY: Chest pain. COMPARISON: 05/24/2018. FINDINGS: The lungs are clear without edema or pneumonia. No pleural effusion or pneumothorax. Heart size is normal. IMPRESSION: Clear lungs. Dictated by: Dictated on workstation # [id number]
[2022-06-09] MEDS ORDERED: ACETAMINOPHEN 325 MG TABLET PO ONE (19:30)
[2022-06-09 19:43] VITALS: BP 116/63
== END 2022-06-09 19:44 ==
LOC: EDUNIT# 18:15 → ER FS 18:16
DX: M94.0 Chondrocostal junction syndrome [Tietze] (principal); F15.10 Other stimulant abuse, uncomplicated; F12.10 Cannabis abuse, uncomplicated; F17.200 Nicotine dependence, unspecified, uncomplicated
CPT/HCPCS: 36415; 71045; 80053; 80306; 81000; 83735; 84484; 85025; 85379; 85610; 85730; 93005